=== PATIENT | male | born 1970 | race Caucasian/White ===

== ENCOUNTER 2020-04-18 06:35 | Emergency (ER) | payer OTHER ==
[~2020-04-18] VITALS: Ht 177.8 cm; Wt 132.0 kg
--- NOTE | 2020-04-18 06:42 | NUR ---
Pt to room from triage, ambulatory with steady gait.
[2020-04-18] MEDS ORDERED: DIAZEPAM 5 MG TABLET PO ONE (07:00)
[2020-04-18] MEDS ORDERED: KETOROLAC 30 MG/1 ML IM ONE (07:00)
[2020-04-18] MEDS ORDERED: KETOROLAC 30 MG/1 ML ONE (07:04)
[2020-04-18] MEDS ORDERED: DIAZEPAM 5 MG TABLET ONE (07:04)
--- NOTE | 2020-04-18 07:20 | NUR ---
Pt medicated for 5/10 pain per MAR. Denies any other needs at this time.
[2020-04-18 08:23] VITALS: BP 135/79
--- NOTE | 2020-04-18 08:26 | NUR ---
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 Able to dress self and fully ambilitory out of unity.
== END 2020-04-18 08:26 | disposition home or self-care (01) ==
LOC: ED 07:37
DX: S39.012A Strain of muscle, fascia and tendon of lower back, initial encounter (principal); X58.XXXA Exposure to other specified factors, initial encounter; Y93.89 Activity, other specified; Y92.89 Other specified places as the place of occurrence of the external cause; Y99.8 Other external cause status
CPT/HCPCS: 96372; 99283; J1885

== ENCOUNTER 2020-07-04 15:03 | Emergency (ER) | payer OTHER ==
[~2020-07-04] VITALS: Ht 177.8 cm; Wt 129.9 kg
[2020-07-04 15:05] VITALS: BP 145/51
--- NOTE | 2020-07-04 16:34 | NUR ---
DR THAKKAR BEDSIDE
[2020-07-04] MEDS ORDERED: APIXABAN 5 MG TABLET ONE (16:42)
[2020-07-04] MEDS ORDERED: APIXABAN 5 MG TABLET PO ONE (17:00)
== END 2020-07-04 17:05 | disposition home or self-care (01) ==
LOC: ED 15:10
DX: I82.432 Acute embolism and thrombosis of left popliteal vein (principal)
CPT/HCPCS: 99284